=== PATIENT | female | born 1990 | race Caucasian/White ===

== ENCOUNTER 2018-08-20 00:28 | Inpatient (IN) | payer BC ==
[2018-08-20] MEDS ORDERED: Ondansetron 4 MG/2 ML SDV IV PRN (01:32)
[2018-08-20] MEDS ORDERED: Water For Irrigation,Sterile 1,000 ML Container IRR PRN (01:32)
[2018-08-20] MEDS ORDERED: Tranexamic Acid 1,000 MG in Sodium Chloride 0.9% 100 ML IV PRN (01:32)
[2018-08-20] MEDS ORDERED: Sodium Chloride 0.9% 10 ML SDV IV PRN (01:32)
[2018-08-20] MEDS ORDERED: Methylergonovine 0.2 MG/1 ML Amp IM PRN (01:32)
[2018-08-20] MEDS ORDERED: Misoprostol 25 MCG (1/4 of 100 MCG) Tab PO PRN (01:32)
[2018-08-20] MEDS ORDERED: Sodium Chloride 0.9% 2.5 ML Syringe FLUSH PRN (01:32)
[2018-08-20] MEDS ORDERED: Misoprostol 200 MCG Tab PO PRN (01:32)
[2018-08-20] MEDS ORDERED: Sodium Chloride 0.9% 10 ML Syringe FLUSH PRN (01:32)
[2018-08-20] MEDS ORDERED: Terbutaline 1 MG/ML SDV SUBCUT PRN (01:32)
[2018-08-20] MEDS ORDERED: Nalbuphine 10 MG/1 ML Vial IVPUSH PRN (01:32)
[2018-08-20] MEDS ORDERED: Misoprostol 25 MCG (1/4 of 100 MCG) Tab VAG PRN (01:32)
[2018-08-20] MEDS ORDERED: Carboprost Tromethamine 250 MCG/1 ML Amp IM PRN (01:32)
[2018-08-20] MEDS ORDERED: Lidocaine 1% 50 ML MDV INJECT PRN (01:32)
[2018-08-20] MEDS ORDERED: Oxytocin/0.9 % Sodium Chloride 30 UNIT/500 ML BAG IV SCH (01:45)
[2018-08-20] MEDS: Lactated Ringers 1,000 ML IV SCH ×3 (06:10→18:16)
--- NOTE | 2018-08-20 08:27 | PCM.PREANE ---
Preanesthetic Assessment - Anesthesia/Transfusion/Family Hx Anesthesia History: Prior Anesthesia Without Reaction Transfusion History: No Prior Transfusion(s) - Review of Systems General: No Symptoms Pulmonary: No Symptoms Cardiovascular: No Symptoms Gastrointestinal: No Symptoms Neurological: No Symptoms Other: Reports: None - Physical Assessment Height: 5 ft 7 in Weight: 102.058 kg ASA Class: 2 Mental Status: Alert & Oriented x3 Airway Class: Mallampati = 2 Dentition: Reports: Normal Dentition Thyro-Mental Finger Breadths: 3 Mouth Opening Finger Breadths: 3 ROM/Head Extension: Full Lungs: Clear to Auscultation, Normal Respiratory Effort Cardiovascular: Regular Rate, Regular Rhythm - Lab Values: Laboratory Last Values WBC 13.55 K/uL (4.0-11.0) H 08/20/18 01:45 RBC 4.27 M/uL (4.30-5.90) L 08/20/18 01:45 Hgb 12.6 g/dL (12.0-16.0) 08/20/18 01:45 Hct 37.6 % (36.0-46.0) 08/20/18 01:45 MCV 88.1 fL (80.0-98.0) 08/20/18 01:45 MCH 29.5 pg (27.0-32.0) 08/20/18 01:45 MCHC 33.5 g/dL (31.0-37.0) 08/20/18 01:45 RDW Std Deviation 44.2 fl (28.0-62.0) 08/20/18 01:45 RDW Coeff of Gigi 14 % (11.0-15.0) 08/20/18 01:45 Plt Count 303 K/uL (150-400) 08/20/18 01:45 MPV 9.90 fL (7.40-12.00) 08/20/18 01:45 Nucleated RBC % 0.0 /100WBC 08/20/18 01:45 Nucleated RBCs # 0 K/uL 08/20/18 01:45 Blood Type O POSITIVE 08/20/18 01:45 Antibody Screen NEGATIVE 08/20/18 01:45 - Allergies Allergies/Adverse Reactions: Allergies Allergy/AdvReac Type Severity Reaction Status Date / Time No Known Allergies Allergy Verified 08/20/18 01:31 - Anesthesia Plan Free Text/Narrative:: Continuous Labor Epidural - Acknowledgements Anesthesia Type Planned: Epidural Pt an Appropriate Candidate for the Planned Anesthesia: Yes Alternatives and Risks of Anesthesia Discussed w Pt/Guardian: Yes Pt/Guardian Understands and Agrees with Anesthesia Plan: Yes PreAnesthesia Questionnaire HEENT History: Reports: Impaired Vision Cardiovascular History: Reports: None Respiratory History: Reports: None Gastrointestinal History: Reports: None Genitourinary History: Reports: None IRON HANDLER History: Reports: : 1 Para: 0 LMP (Approximate): Musculoskeletal History: Reports: None Neurological History: Reports: None Psychiatric History: Reports: None Endocrine/Metabolic History: Reports: None Hematologic History: Reports: None Immunologic History: Reports: None Oncologic (Cancer) History: Reports: None Dermatologic History: Reports: None - Infectious Disease History Infectious Disease History: Reports: None - Past Surgical History HEENT Surgical History: Reports: Oral Surgery, Other (See Below) Other HEENT Surgeries/Procedures: cyst removed from head - SUBSTANCE USE Smoking Status *Q: Never Smoker Recreational Drug Use History: No - HOME MEDS Home Medications: Home Meds PNV95/Ferrous Fumarate/FA [ Tablet] 1 tab PO DAILY 08/20/18 [History] - CURRENT (IN HOUSE) MEDS Current Meds: Current Medications Carboprost Tromethamine (Hemabate Ds) 250 mcg IM ASDIRECTED PRN PRN Reason: Post Hemorrhage Lactated Ringer's (Ringers, Lactated) 1,000 mls @ 150 mls/hr IV ASDIRECTED MECHE Last Admin: 08/20/18 08:20 Dose: 150 mls/hr Oxytocin/Sodium Chloride (Oxytocin 30 Unit/500 Ml-Ns) 30 unit in 500 mls @ 999 mls/hr IV TITRATE MECHE Oxytocin/Sodium Chloride (Oxytocin 30 Unit/500 Ml-Ns) 30 unit in 500 mls @ 2 mls/hr IV TITRATE M[facility]; Protocol Last Admin: 08/20/18 06:49 Dose: 2 munits/min, 2 mls/hr Tranexamic Acid 1,000 mg/ (Sodium Chloride) 110 mls @ 660 mls/hr IV ONETIME PRN PRN Reason: Bleeding Lidocaine HCl (Xylocaine 1%) 50 ml INJECT ONETIME PRN PRN Reason: Laceration repair Methylergonovine Maleate (Methergine) 0.2 mg IM ASDIRECTED PRN PRN Reason: Post Hemorrhage Misoprostol (Cytotec) 200 mcg PO ONETIME PRN PRN Reason: Post Hemorrhage Misoprostol (Cytotec) 25 mcg VAG Q4H PRN PRN Reason: Cervical Ripening Last Admin: 08/20/18 01:56 Dose: 25 mcg Misoprostol (Cytotec) 25 mcg PO Q4H PRN PRN Reason: Cervical Ripening Last Admin: 08/20/18 01:55 Dose: 25 mcg Nalbuphine HCl (Nubain) 10 mg IVPUSH Q1H PRN PRN Reason: Pain (severe 7-10) Ondansetron HCl (Zofran) 4 mg IV Q6H PRN PRN Reason: Nausea/Vomiting Sodium Chloride (Saline Flush) 10 ml FLUSH ASDIRECTED PRN PRN Reason: Keep Vein Open Sodium Chloride (Saline Flush) 2.5 ml FLUSH ASDIRECTED PRN PRN Reason: Keep Vein Open Sodium Chloride (Normal Saline) 10 ml IV ASDIRECTED PRN PRN Reason: IV Use Sterile Water (Sterile Water For Irrigation) 1,000 ml IRR ASDIRECTED PRN PRN Reason: delivery Terbutaline Sulfate (Brethine) 0.25 mg SUBCUT ASDIRECTED PRN PRN Reason: Tacysystole Discontinued Medications Fentanyl/Bupivacaine HCl (Dobowsin-Syrco-Ea 2 Mcg/Ml-0.125%) Confirm Administered Dose 100 mls @ as directed .ROUTE .[facility] ONE Stop: 08/20/18 07:48
[2018-08-20] MEDS ORDERED: Bupivacaine 0.25% 10 ML SDV ONE ×2 (12:18→14:55)
--- NOTE | 2018-08-20 13:25 | PCM.SN ---
- Free Text/Narrative Note: [id number] Anesthesia Note: Pt has advanced from 4 cm to 6-7cm in 2 hrs and is having breakthrough pain in her L groin with no relief from PRODUCTION LINE Boluses. Provider bolus of 9 mL given and HOB positioned in high fowlers. [id number] Pt states that pain in groin has resolved, but severe pressure/pain in her vaginal area is causing her to breathe thru contractions. She has now progressed to 8 cm. A total of 10 mL per pump bolused and 5mL of 0.25% Bupiv given. After 15 min, pt is much more relaxed and states she is not having any pain with contractions.
[2018-08-20] MEDS ORDERED: fentaNYL 100 MCG/2 ML SDV ONE (15:16)
--- NOTE | 2018-08-20 15:47 | PCM.SN ---
- Free Text/Narrative Note: Anesthesia Note: 1450 - 1550 Pt breathing heavy thru contractions. Dilated to 9 cm now and at 0 station still with complaints of pain to her back and vaginal area. Bolused with 10 mL 0.25% Bupiv. Checked back 10 min later and pt still breathing just as heavy and states pain more on L side and just wants to push. Asked nurse to check pt again. Pt is now fully dilated. Assisted nurse with turning pt to the L and bolused with 100 mcg of Fentanyl. Pt tolerates well and VSS. Appears to be getting relief with in just a few minutes. Pt now pushing and doctor called for delivery. Pt much calmer. Additional 5mL bolus given via pump. VSS.
[2018-08-20] MEDS: Oxytocin/0.9 % Sodium Chloride 30 UNIT/500 ML BAG IV SCH ×2 (16:15→17:10)
[2018-08-20] MEDS ORDERED: Ampicillin/Sulbactam Na 3 GM in Sodium Chloride 0.9% 100 ML IV SCH (16:30)
[2018-08-20] MEDS ORDERED: Butorphanol 1 MG/ML SDV ONE (16:30)
[2018-08-20] MEDS ORDERED: oxyCODONE 5 MG Tab PO PRN (17:20)
[2018-08-20] MEDS ORDERED: Lanolin 100% Cream 7 GM Tube TOP PRN (17:20)
[2018-08-20] MEDS ORDERED: Witch Hazel Medicated Pads 40/Jar TOP PRN (17:20)
[2018-08-20] MEDS ORDERED: Acetaminophen 500 MG Tab PO PRN ×2 (17:20)
[2018-08-20] MEDS ORDERED: Benzocaine/Menthol 20%-0.5% Spray 78 GM Cannister TOP PRN (17:20)
[2018-08-20] MEDS ORDERED: Docusate Sodium 100 MG Cap PO PRN (17:20)
[2018-08-20] MEDS ORDERED: Ibuprofen 400 MG Tab PO PRN (17:20)
[2018-08-20] MEDS ORDERED: Bisacodyl 10 MG Supp RECTAL PRN (17:20)
--- NOTE | 2018-08-20 17:26 | PCM.DEL ---
L & D Note - General Info Date of Service: 08/20/18 Mother's Due Date: 08/15/18 - Delivery Note Labor: Spontaneous Delivery Outcome: Livebirth Infant Delivery Method: Spontaneous Vaginal Delivery-Single Presentation: Left Occiput Anterior (VICKI) Nuchal Cord: Reduced Anesthesia Type: Epidural Laceration: 2nd Degree Suture type: Other (monocryl) Suture size: 2-0 Placenta: Spontaneous Cord: 3 Vessels Estimated Blood Loss: 1,000 Resuscitation Needed: No [place]: Suctioned, [place] Used Score 1 min: 8 Score 5 min: 9 Delivery Comments (Free Text/Narrative):: Live female delivered 1614 , 8/9 , weight 3520g , EBL: 1000 , due to bleeding , patient given 1g of transexamic acid addition bag of 30 Unit in 500, Methergine 0.2g Bmanual massage done - General Info Date of Service: 08/20/18 - Patient Data Weight - Most Recent: 102.058 kg Lab Results Last 24 Hours: Laboratory Results - last 24 hr 08/20/18 08/20/18 Range/Units 01:45 01:45 WBC 13.55 H (4.0-11.0) K/uL RBC 4.27 L (4.30-5.90) M/uL Hgb 12.6 (12.0-16.0) g/dL Hct 37.6 (36.0-46.0) % MCV 88.1 (80.0-98.0) fL MCH 29.5 (27.0-32.0) pg MCHC 33.5 (31.0-37.0) g/dL RDW Std Deviation 44.2 (28.0-62.0) fl RDW Coeff of Gigi 14 (11.0-15.0) % Plt Count 303 (150-400) K/uL MPV 9.90 (7.40-12.00) fL Nucleated RBC % 0.0 /100WBC Nucleated RBCs # 0 K/uL Blood Type O POSITIVE Antibody Screen NEGATIVE Med Orders - Current: Current Medications Carboprost Tromethamine (Hemabate Ds) 250 mcg IM ASDIRECTED PRN PRN Reason: Post Hemorrhage Lactated Ringer's (Ringers, Lactated) 1,000 mls @ 150 mls/hr IV ASDIRECTED MECHE Last Admin: 08/20/18 08:20 Dose: 150 mls/hr Oxytocin/Sodium Chloride (Oxytocin 30 Unit/500 Ml-Ns) 30 unit in 500 mls @ 999 mls/hr IV TITRATE [facility] Last Admin: 08/20/18 16:15 Dose: 999 mls/hr Oxytocin/Sodium Chloride (Oxytocin 30 Unit/500 Ml-Ns) 30 unit in 500 mls @ 2 mls/hr IV TITRATE [facility]; Protocol Last Titration: 08/20/18 16:15 Dose: 0 munits/min, 0 mls/hr Tranexamic Acid 1,000 mg/ (Sodium Chloride) 110 mls @ 660 mls/hr IV ONETIME PRN PRN Reason: Bleeding Ampicillin Sodium/Sulbactam (Sodium 3 gm/ Sodium Chloride) 100 mls @ 200 mls/ hr IV Q6H [facility] Stop: 08/21/18 17:14 Lidocaine HCl (Xylocaine 1%) 50 ml INJECT ONETIME PRN PRN Reason: Laceration repair Last Admin: 08/20/18 16:36 Dose: 50 ml Methylergonovine Maleate (Methergine) 0.2 mg IM ASDIRECTED PRN PRN Reason: Post Hemorrhage Last Admin: 08/20/18 16:33 Dose: 0.2 mg Misoprostol (Cytotec) 200 mcg PO ONETIME PRN PRN Reason: Post Hemorrhage Misoprostol (Cytotec) 25 mcg VAG Q4H PRN PRN Reason: Cervical Ripening Last Admin: 08/20/18 01:56 Dose: 25 mcg Misoprostol (Cytotec) 25 mcg PO Q4H PRN PRN Reason: Cervical Ripening Last Admin: 08/20/18 01:55 Dose: 25 mcg Nalbuphine HCl (Nubain) 10 mg IVPUSH Q1H PRN PRN Reason: Pain (severe 7-10) Ondansetron HCl (Zofran) 4 mg IV Q6H PRN PRN Reason: Nausea/Vomiting Sodium Chloride (Saline Flush) 10 ml FLUSH ASDIRECTED PRN PRN Reason: Keep Vein Open Sodium Chloride (Saline Flush) 2.5 ml FLUSH ASDIRECTED PRN PRN Reason: Keep Vein Open Sodium Chloride (Normal Saline) 10 ml IV ASDIRECTED PRN PRN Reason: IV Use Sterile Water (Sterile Water For Irrigation) 1,000 ml IRR ASDIRECTED PRN PRN Reason: delivery Last Admin: 08/20/18 16:36 Dose: 1,000 ml Terbutaline Sulfate (Brethine) 0.25 mg SUBCUT ASDIRECTED PRN PRN Reason: Tacysystole Discontinued Medications Bupivacaine HCl (Sensorcaine-Mpf 0.25%) Confirm Administered Dose 10 ml .ROUTE .[facility]-MED ONE Stop: 08/20/18 12:19 Bupivacaine HCl (Sensorcaine-Mpf 0.25%) Confirm Administered Dose 10 ml .ROUTE .ST[facility]-MED ONE Stop: 08/20/18 14:56 Butorphanol Tartrate (Stadol) Confirm Administered Dose 1 mg .ROUTE .STK-MED ONE Stop: 08/20/18 16:31 Last Admin: 08/20/18 16:34 Dose: 1 mg Fentanyl (Sublimaze) Confirm Administered Dose 100 mcg .ROUTE .STK-MED ONE Stop: 08/20/18 15:17 Fentanyl/Bupivacaine HCl ([place]-Pnwna-Gq 2 Mcg/Ml-0.125%) Confirm Administered Dose 100 mls @ as directed .ROUTE .STK-MED ONE Stop: 08/20/18 07:48 Fentanyl/Bupivacaine HCl (Nwnjthlw-Qmfhn-Dl 2 Mcg/Ml-0.125%) Confirm Administered Dose 100 mls @ as directed .ROUTE .STK-MED ONE Stop: 08/20/18 12:18 Ampicillin Sodium/Sulbactam (Sodium 3 gm/ Sodium Chloride) 100 mls @ 200 mls/ hr IV Q6H [facility] Stop: 08/21/18 10:59 Tranexamic Acid (Cyklokapron) Confirm Administered Dose 1,000 mg .ROUTE .STK- MED ONE Stop: 08/20/18 16:54 Last Admin: 08/20/18 16:59 Dose: 1,000 mg - Problem List & Annotations (1) Vaginal delivery SNOMED Code(s): 808111089 Code(s): O80 - ENCOUNTER FOR FULL-TERM UNCOMPLICATED DELIVERY Status: Acute Current Visit: Yes - Problem List Review Problem List Initiated/Reviewed/Updated: Yes - My Orders Last 24 Hours: My Active Orders 08/20/18 16:45 Ampicillin/Sulbactam Na [Unasyn] 3 gm Sodium Chloride 0.9% [Normal Saline] 100 ml IV Q6H 08/20/18 17:20 May Shower [RC] ASDIRECTED Up ad Kezia [RC] ASDIRECTED Vital Signs [RC] PER UNIT ROUTINE BLOOD GAS ARTERIAL UMBILICAL [BG] Urgent BLOOD GAS VENOUS UMBILICAL [BG] Urgent Acetaminophen [Tylenol Extra Strength] 1,000 mg PO Q4H PRN Acetaminophen [Tylenol Extra Strength] 500 mg PO Q4H PRN Benzocaine/Menthol [Dermoplast Pain Relief 20%-0.5% [place]] 78 gm TOP ASDIRECTED PRN Bisacodyl [Dulcolax] 10 mg RECTAL ONETIME PRN Docusate Sodium [Colace] 100 mg PO BID PRN Ibuprofen [Motrin] 400 mg PO Q4H PRN Ibuprofen [Motrin] 800 mg PO Q6H PRN Lanolin [Lansinoh HPA] See Dose Instructions TOP ASDIRECTED PRN Witch Albina [Tucks] 1 pad TOP ASDIRECTED PRN oxyCODONE 5 mg PO Q2H PRN Assess Lochia [WOMSER] Per Unit Routine Assess Uterine Involution [WOMSER] Per Unit Routine Peripheral IV Discontinue [OM.PC] Routine 08/21/18 05:11 HEMOGLOBIN/HEMATOCRIT,HH [HEME] Timed 08/21/18 17:20 Measles, Mumps & Rubella [M-M-R II Vaccine] 0.5 ml SUBCUT .ONCE ONE
[2018-08-20] MEDS: Ampicillin/Sulbactam Na 3 GM in Sodium Chloride 0.9% 100 ML IV SCH (18:15)
[2018-08-21] MEDS: Ampicillin/Sulbactam Na 3 GM in Sodium Chloride 0.9% 100 ML IV SCH ×4 (00:20→17:55)
[2018-08-21] MEDS: Ibuprofen 800 MG Tab PO PRN ×3 (05:51→20:11)
--- NOTE | 2018-08-21 07:57 | PCM48HPAN ---
Post Anesthesia Note - EVALUATION WITHIN 48HRS OF ANESTHETIC Vital Signs in Normal Range: Yes Patient Participated in Evaluation: Yes Respiratory Function Stable: Yes Airway Patent: Yes Cardiovascular Function Stable: Yes Hydration Status Stable: Yes Pain Control Satisfactory: Yes Nausea and Vomiting Control Satisfactory: Yes Mental Status Recovered: Yes Pulse Rate: 78 SaO2: 94 Resp Rate: 14 Temperature: 36.5 C Blood Pressure: 111/62 - COMMENTS/OBSERVATIONS Free Text/Narrative:: Patient doing well, sitting in bed nursing baby. States some numbness in right groin area and some generalized discomfort. No anesthesia complications or concerns.
--- NOTE | 2018-08-21 08:04 | PCM.PNPP ---
- General Info Date of Service: 08/21/18 Subjective Update: 27 yo P1 s/p PPD1 , delivery complicated with PPH , normal lochia , ambulating , tolerating regular diet Functional Status: Reports: Pain Controlled, Tolerating Diet, Ambulating, Urinating - Review of Systems General: Reports: No Symptoms HEENT: Reports: No Symptoms Pulmonary: Reports: No Symptoms Cardiovascular: Reports: No Symptoms Gastrointestinal: Reports: No Symptoms Genitourinary: Reports: No Symptoms Musculoskeletal: Reports: No Symptoms Skin: Reports: No Symptoms Neurological: Reports: No Symptoms Psychiatric: Reports: No Symptoms - General Info Date of Service: 08/21/18 - Patient Data Vital Signs - Most Recent: Last Vital Signs Temp 36.5 C 08/21/18 07:57 Pulse 78 08/21/18 07:57 Resp 14 08/21/18 07:57 BP 111/62 08/21/18 07:57 Pulse Ox 94 L 08/21/18 07:57 Weight - Most Recent: 102.058 kg Lab Results - Last 24 Hours: Laboratory Results - last 24 hr 08/20/18 08/21/18 Range/Units 16:16 05:45 Hgb 11.0 L (12.0-16.0) g/dL Hct 33.3 L (36.0-46.0) % Cord ABG pH 7.210 (7.18-7.38) Cord ABG Base Excess -11 L (-10--2) Cord VBG pH 7.260 (7.25-7.45) Cord VBG Base Excess -12 L (-10--2) Med Orders - Current: Current Medications Acetaminophen (Tylenol Extra Strength) 500 mg PO Q4H PRN PRN Reason: Pain Acetaminophen (Tylenol Extra Strength) 1,000 mg PO Q4H PRN PRN Reason: Pain Benzocaine/Menthol (Dermoplast Pain Relief 20%-0.5% [place]) 78 gm TOP ASDIRECTED PRN PRN Reason: Perineal Comfort Measure Bisacodyl (Dulcolax) 10 mg RECTAL ONETIME PRN PRN Reason: Constipation Docusate Sodium (Colace) 100 mg PO BID PRN PRN Reason: Constipation Emollient Ointment (Lansinoh Hpa) 0 gm TOP ASDIRECTED PRN PRN Reason: Sore Nipples Lactated Ringer's (Ringers, Lactated) 1,000 mls @ 150 mls/hr IV ASDIRECTED MECHE Last Admin: 08/20/18 18:16 Dose: 75 mls/hr Oxytocin/Sodium Chloride (Oxytocin 30 Unit/500 Ml-Ns) 30 unit in 500 mls @ 2 mls/hr IV TITRATE M[facility]; Protocol Last Titration: 08/20/18 16:15 Dose: 0 munits/min, 0 mls/hr Ampicillin Sodium/Sulbactam (Sodium 3 gm/ Sodium Chloride) 100 mls @ 200 mls/ hr IV Q6H [facility] Stop: 08/21/18 17:14 Last Admin: 08/21/18 05:52 Dose: 200 mls/hr Ibuprofen (Motrin) 400 mg PO Q4H PRN PRN Reason: Pain Ibuprofen (Motrin) 800 mg PO Q6H PRN PRN Reason: Pain Last Admin: 08/21/18 05:51 Dose: 800 mg Measles/Mumps/Rubella Vaccine Live (M-M-R Ii Vaccine) 0.5 ml SUBCUT .ONCE ONE Stop: 08/21/18 17:21 Misoprostol (Cytotec) 25 mcg VAG Q4H PRN PRN Reason: Cervical Ripening Last Admin: 08/20/18 01:56 Dose: 25 mcg Misoprostol (Cytotec) 25 mcg PO Q4H PRN PRN Reason: Cervical Ripening Last Admin: 08/20/18 01:55 Dose: 25 mcg Ondansetron HCl (Zofran) 4 mg IV Q6H PRN PRN Reason: Nausea/Vomiting Oxycodone HCl (Oxycodone) 5 mg PO Q2H PRN PRN Reason: Pain Sodium Chloride (Saline Flush) 10 ml FLUSH ASDIRECTED PRN PRN Reason: Keep Vein Open Sodium Chloride (Saline Flush) 2.5 ml FLUSH ASDIRECTED PRN PRN Reason: Keep Vein Open Sodium Chloride (Normal Saline) 10 ml IV ASDIRECTED PRN PRN Reason: IV Use Terbutaline Sulfate (Brethine) 0.25 mg SUBCUT ASDIRECTED PRN PRN Reason: Tacysystole Witch [place] (Tucks) 1 pad TOP ASDIRECTED PRN PRN Reason: comfort care Discontinued Medications Bupivacaine HCl (Sensorcaine-Mpf 0.25%) Confirm Administered Dose 10 ml .ROUTE .[facility]-MED ONE Stop: 08/20/18 12:19 Last Admin: 08/20/18 20:30 Dose: Not Given Bupivacaine HCl (Sensorcaine-Mpf 0.25%) Confirm Administered Dose 10 ml .ROUTE .[facility] ONE Stop: 08/20/18 14:56 Last Admin: 08/20/18 20:30 Dose: Not Given Butorphanol Tartrate (Stadol) Confirm Administered Dose 1 mg .ROUTE .[facility] ONE Stop: 08/20/18 16:31 Last Admin: 08/20/18 16:34 Dose: 1 mg Carboprost Tromethamine (Hemabate Ds) 250 mcg IM ASDIRECTED PRN PRN Reason: Post Hemorrhage Fentanyl (Sublimaze) Confirm Administered Dose 100 mcg .ROUTE .[facility]-MED ONE Stop: 08/20/18 15:17 Last Admin: 08/20/18 20:29 Dose: Not Given Oxytocin/Sodium Chloride (Oxytocin 30 Unit/500 Ml-Ns) 30 unit in 500 mls @ 999 mls/hr IV TITRATE [facility] Last Admin: 08/20/18 17:10 Dose: 500 mls/hr Tranexamic Acid 1,000 mg/ (Sodium Chloride) 110 mls @ 660 mls/hr IV ONETIME PRN PRN Reason: Bleeding Fentanyl/Bupivacaine HCl (Ovwrdrml-Cgsqs-Ej 2 Mcg/Ml-0.125%) Confirm Administered Dose 100 mls @ as directed .ROUTE .[facility] Stop: 08/20/18 07:48 Last Admin: 08/20/18 20:30 Dose: Not Given Fentanyl/Bupivacaine HCl (Dhhcgcxx-Emtwu-Hm 2 Mcg/Ml-0.125%) Confirm Administered Dose 100 mls @ as directed .ROUTE [facility]-MED ONE Stop: 08/20/18 12:18 Last Admin: 08/20/18 20:30 Dose: Not Given Ampicillin Sodium/Sulbactam (Sodium 3 gm/ Sodium Chloride) 100 mls @ 200 mls/ hr IV Q6H [facility] Stop: 08/21/18 10:59 Last Admin: 08/20/18 20:52 Dose: Not Given Lidocaine HCl (Xylocaine 1%) 50 ml INJECT ONETIME PRN PRN Reason: Laceration repair Last Admin: 08/20/18 16:36 Dose: 50 ml Methylergonovine Maleate (Methergine) 0.2 mg IM ASDIRECTED PRN PRN Reason: Post Hemorrhage Last Admin: 08/20/18 16:33 Dose: 0.2 mg Misoprostol (Cytotec) 200 mcg PO ONETIME PRN PRN Reason: Post Hemorrhage Nalbuphine HCl (Nubain) 10 mg IVPUSH Q1H PRN PRN Reason: Pain (severe 7-10) Sterile Water (Sterile Water For Irrigation) 1,000 ml IRR ASDIRECTED PRN PRN Reason: delivery Last Admin: 08/20/18 16:36 Dose: 1,000 ml Tranexamic Acid (Cyklokapron) Confirm Administered Dose 1,000 mg .ROUTE .STK- MED ONE Stop: 08/20/18 16:54 Last Admin: 08/20/18 16:59 Dose: 1,000 mg - Interaction Support Person: - Recovery Exam Fundal Tone: Firm Fundal Level: 1 Fingerbreadths Below Umbilicus Fundal Placement: Midline Lochia Amount: Scant Lochia Color: Rubra/Red Perineum Description: Other (see below) Other Perinuem Description: 2nd degree laceration Episiotomy/Laceration: Approximated Bladder Status: Voiding - Exam General: Alert HEENT: Pupils Equal Neck: Supple Lungs: Clear to Auscultation, Normal Respiratory Effort Cardiovascular: Regular Rate, Regular Rhythm GI/Abdominal Exam: Normal Bowel Sounds Extremities: Normal Inspection - Problem List & Annotations (1) Vaginal delivery SNOMED Code(s): 994933938 Code(s): O80 - ENCOUNTER FOR FULL-TERM UNCOMPLICATED DELIVERY Status: Acute Current Visit: Yes - Problem List Review Problem List Initiated/Reviewed/Updated: Yes - My Orders Last 24 Hours: My Active Orders 08/20/18 16:45 Ampicillin/Sulbactam Na [Unasyn] 3 gm Sodium Chloride 0.9% [Normal Saline] 100 ml IV Q6H 08/20/18 17:20 May Shower [RC] ASDIRECTED Up ad Kezia [RC] ASDIRECTED Vital Signs [RC] PER UNIT ROUTINE Acetaminophen [Tylenol Extra Strength] 1,000 mg PO Q4H PRN Acetaminophen [Tylenol Extra Strength] 500 mg PO Q4H PRN Benzocaine/Menthol [Dermoplast Pain Relief 20%-0.5% [place]] 78 gm TOP ASDIRECTED PRN Bisacodyl [Dulcolax] 10 mg RECTAL ONETIME PRN Docusate Sodium [Colace] 100 mg PO BID PRN Ibuprofen [Motrin] 400 mg PO Q4H PRN Ibuprofen [Motrin] 800 mg PO Q6H PRN Lanolin [Lansinoh HPA] See Dose Instructions TOP ASDIRECTED PRN Witch [place] [Tucks] 1 pad TOP ASDIRECTED PRN oxyCODONE 5 mg PO Q2H PRN Assess Lochia [WOMSER] Per Unit Routine Assess Uterine Involution [WOMSER] Per Unit Routine Peripheral IV Discontinue [OM.PC] Routine 08/20/18 19:08 Admission Status [Patient Status] [ADT] Routine 08/20/18 20:35 Code Status [Resuscitation Status] Routine 08/21/18 17:20 Measles, Mumps & Rubella [M-M-R II Vaccine] 0.5 ml SUBCUT .ONCE ONE - Assessment Assessment:: 27 yo P1 s/p PPD 1 , normal lochia , had PPH , manual removal of placenta - Plan Plan:: Complete 24hrs of antibiotics Discharge home today
--- NOTE | 2018-08-21 08:07 | PCM.DCSUM1 ---
Discharge Summary - Hospital Course HPI Initial Comments: 27 yo s/p PPD1 , Normal lochia , s/p manual removal of placenta Diagnosis: Stroke: No - Discharge Data Discharge Date: 08/21/18 Discharge Disposition: Home, Self-Care 01 Condition: Good - Discharge Diagnosis/Problem(s) (1) Vaginal delivery SNOMED Code(s): 499810395 ICD Code: O80 - ENCOUNTER FOR FULL-TERM UNCOMPLICATED DELIVERY Status: Acute Current Visit: Yes - Patient Instructions Diet: Usual Diet as Tolerated Activity: As Tolerated Driving: Do Not Drive Showering/Bathing: May Shower Notify Provider of: Fever, Increased Pain, Swelling and Redness, Drainage - Discharge Plan *PRESCRIPTION DRUG MONITORING PROGRAM REVIEWED*: Not Applicable *COPY OF PRESCRIPTION DRUG MONITORING REPORT IN PATIENT DOROTHY: Not Applicable Home Medications: Home Meds PNV95/Ferrous Fumarate/FA [ Tablet] 1 tab PO DAILY 08/20/18 [History] - Discharge Summary/Plan Comment DC Time >30 min.: No - General Info Date of Service: 08/21/18 Subjective Update: 27 yo P1 s/p PPD1 , delivery complicated with PPH , normal lochia , ambulating , tolerating regular diet - Patient Data Vitals - Most Recent: Last Vital Signs Temp 36.5 C 08/21/18 07:57 Pulse 78 08/21/18 07:57 Resp 14 08/21/18 07:57 BP 111/62 08/21/18 07:57 Pulse Ox 94 L 08/21/18 07:57 Weight - Most Recent: 102.058 kg Lab Results - Last 24 hrs: Laboratory Results - last 24 hr 08/20/18 08/21/18 Range/Units 16:16 05:45 Hgb 11.0 L (12.0-16.0) g/dL Hct 33.3 L (36.0-46.0) % Cord ABG pH 7.210 (7.18-7.38) Cord ABG Base Excess -11 L (-10--2) Cord VBG pH 7.260 (7.25-7.45) Cord VBG Base Excess -12 L (-10--2) Med Orders - Current: Current Medications Acetaminophen (Tylenol Extra Strength) 500 mg PO Q4H PRN PRN Reason: Pain Acetaminophen (Tylenol Extra Strength) 1,000 mg PO Q4H PRN PRN Reason: Pain Benzocaine/Menthol (Dermoplast Pain Relief 20%-0.5% [place]) 78 gm TOP ASDIRECTED PRN PRN Reason: Perineal Comfort Measure Bisacodyl (Dulcolax) 10 mg RECTAL ONETIME PRN PRN Reason: Constipation Docusate Sodium (Colace) 100 mg PO BID PRN PRN Reason: Constipation Emollient Ointment (Lansinoh Hpa) 0 gm TOP ASDIRECTED PRN PRN Reason: Sore Nipples Lactated Ringer's (Ringers, Lactated) 1,000 mls @ 150 mls/hr IV ASDIRECTED [facility] Last Admin: 08/20/18 18:16 Dose: 75 mls/hr Oxytocin/Sodium Chloride (Oxytocin 30 Unit/500 Ml-Ns) 30 unit in 500 mls @ 2 mls/hr IV TITRATE [facility]; Protocol Last Titration: 08/20/18 16:15 Dose: 0 munits/min, 0 mls/hr Ampicillin Sodium/Sulbactam (Sodium 3 gm/ Sodium Chloride) 100 mls @ 200 mls/ hr IV Q6H [facility] Stop: 08/21/18 17:14 Last Admin: 08/21/18 05:52 Dose: 200 mls/hr Ibuprofen (Motrin) 400 mg PO Q4H PRN PRN Reason: Pain Ibuprofen (Motrin) 800 mg PO Q6H PRN PRN Reason: Pain Last Admin: 08/21/18 05:51 Dose: 800 mg Measles/Mumps/Rubella Vaccine Live (M-M-R Ii Vaccine) 0.5 ml SUBCUT .ONCE ONE Stop: 08/21/18 17:21 Misoprostol (Cytotec) 25 mcg VAG Q4H PRN PRN Reason: Cervical Ripening Last Admin: 08/20/18 01:56 Dose: 25 mcg Misoprostol (Cytotec) 25 mcg PO Q4H PRN PRN Reason: Cervical Ripening Last Admin: 08/20/18 01:55 Dose: 25 mcg Ondansetron HCl (Zofran) 4 mg IV Q6H PRN PRN Reason: Nausea/Vomiting Oxycodone HCl (Oxycodone) 5 mg PO Q2H PRN PRN Reason: Pain Sodium Chloride (Saline Flush) 10 ml FLUSH ASDIRECTED PRN PRN Reason: Keep Vein Open Sodium Chloride (Saline Flush) 2.5 ml FLUSH ASDIRECTED PRN PRN Reason: Keep Vein Open Sodium Chloride (Normal Saline) 10 ml IV ASDIRECTED PRN PRN Reason: IV Use Terbutaline Sulfate (Brethine) 0.25 mg SUBCUT ASDIRECTED PRN PRN Reason: Tacysystole [place] (Tucks) 1 pad TOP ASDIRECTED PRN PRN Reason: comfort care Discontinued Medications Bupivacaine HCl (Sensorcaine-Mpf 0.25%) Confirm Administered Dose 10 ml .ROUTE .STK-MED ONE Stop: 08/20/18 12:19 Last Admin: 08/20/18 20:30 Dose: Not Given Bupivacaine HCl (Sensorcaine-Mpf 0.25%) Confirm Administered Dose 10 ml .ROUTE .STK-MED ONE Stop: 08/20/18 14:56 Last Admin: 08/20/18 20:30 Dose: Not Given Butorphanol Tartrate (Stadol) Confirm Administered Dose 1 mg .ROUTE .STK-MED ONE Stop: 08/20/18 16:31 Last Admin: 08/20/18 16:34 Dose: 1 mg Carboprost Tromethamine (Hemabate Ds) 250 mcg IM ASDIRECTED PRN PRN Reason: Post Hemorrhage Fentanyl (Sublimaze) Confirm Administered Dose 100 mcg .ROUTE .STK-MED ONE Stop: 08/20/18 15:17 Last Admin: 08/20/18 20:29 Dose: Not Given Oxytocin/Sodium Chloride (Oxytocin 30 Unit/500 Ml-Ns) 30 unit in 500 mls @ 999 mls/hr IV TITRATE [facility] Last Admin: 08/20/18 17:10 Dose: 500 mls/hr Tranexamic Acid 1,000 mg/ (Sodium Chloride) 110 mls @ 660 mls/hr IV ONETIME PRN PRN Reason: Bleeding Fentanyl/Bupivacaine HCl (Ppskhpbq-Xysih-Xt 2 Mcg/Ml-0.125%) Confirm Administered Dose 100 mls @ as directed .ROUTE .STK-MED ONE Stop: 08/20/18 07:48 Last Admin: 08/20/18 20:30 Dose: Not Given Fentanyl/Bupivacaine HCl (Efhvconr-Uyjrj-Dp 2 Mcg/Ml-0.125%) Confirm Administered Dose 100 mls @ as directed .ROUTE .STK-MED ONE Stop: 08/20/18 12:18 Last Admin: 08/20/18 20:30 Dose: Not Given Ampicillin Sodium/Sulbactam (Sodium 3 gm/ Sodium Chloride) 100 mls @ 200 mls/ hr IV Q6H [facility] Stop: 08/21/18 10:59 Last Admin: 08/20/18 20:52 Dose: Not Given Lidocaine HCl (Xylocaine 1%) 50 ml INJECT ONETIME PRN PRN Reason: Laceration repair Last Admin: 08/20/18 16:36 Dose: 50 ml Methylergonovine Maleate (Methergine) 0.2 mg IM ASDIRECTED PRN PRN Reason: Post Hemorrhage Last Admin: 08/20/18 16:33 Dose: 0.2 mg Misoprostol (Cytotec) 200 mcg PO ONETIME PRN PRN Reason: Post Hemorrhage Nalbuphine HCl (Nubain) 10 mg IVPUSH Q1H PRN PRN Reason: Pain (severe 7-10) Sterile Water (Sterile Water For Irrigation) 1,000 ml IRR ASDIRECTED PRN PRN Reason: delivery Last Admin: 08/20/18 16:36 Dose: 1,000 ml Tranexamic Acid (Cyklokapron) Confirm Administered Dose 1,000 mg .ROUTE .STK- MED ONE Stop: 08/20/18 16:54 Last Admin: 08/20/18 16:59 Dose: 1,000 mg
--- NOTE | 2018-08-21 13:50 | OR ---
SURGEON: MAKSIM DIAZ DATE OF PROCEDURE:08/21/2018 PREOPERATIVE DIAGNOSIS: A 27-year-old, G1, P0, at 40 weeks and 5 days, admitted for induction of labor for post dates. POSTOPERATIVE DIAGNOSIS: A 27-year-old, G1, P0, at 40 weeks and 5 days, admitted for induction of labor for post dates.Retained Placenta. Hemorrhage PROCEDURE PERFORMED: Normal spontaneous vaginal delivery, Manual removal of placenta Second-degree laceration, which was repaired. ANESTHESIA: Epidural. ESTIMATED BLOOD LOSS: 1000 mL. FINDINGS: Live female delivered at 1640. score was 8 and 9. Weight is 3520g. Excessive amount of bleeding was noted. As a result, Methergine was given. Also, tranexamic acid was also given. BRIEF HISTORY: Patient is 27yo . She came in 40 weeks and 5 days for postdates induction. She started induction. She had Cytotec and Pitocin. Membranes were ruptured. She made change. She became fully dilated. She was encouraged to push. DESCRIPTION OF PROCEDURE: With good pushing effort, she delivered the head subsequently by the anterior and posterior shoulder. The body of the was delivered. was placed on maternal abdomen. Cord was clamped and cut. was handed over to the awaiting pediatric team. The placenta was then attempted to be delivered; however, there was difficulty separation of the placenta from the uterus. The manual removal of placenta was done without difficulty. Then, the perineum was inspected. A second-degree laceration was noted, which was repaired with 2-0 Monocryl. Hemostasis was noted. There was still some slight bleeding, so Methergine was given. Additional Pitocin was also given and also tranexamic acid 1 g was given after which hemostasis was controlled. The patient had some pain during the process and so, she received IV pain medication. All instrument and pad counts were correct x2. The patient left the Labor and Delivery room in stable condition. KYLIE NETTLES /[id number] MTDOrion
[2018-08-21] MEDS ORDERED: Measles, Mumps & Rubella Vaccine 0.5 ML SDV SUBCUT ONE (17:20)
== END 2018-08-21 20:52 | disposition home or self-care (01) | DRG 541 ==
LOC: MW.OBCHECK 00:28 → MW.OB 00:30 → MW.OBCHECK 00:31 → OBSVTOIN 19:08 → MW.OB 23:00
PROVIDERS: ADMIT Obstetrics & Gynecology; ATTEND Obstetrics & Gynecology
PROC: 3E0R3BZ Introduction of Anesthetic Agent into Spinal Canal, Percutaneous Approach (ICD-10-PCS; 2018-08-20)
PROC: 00HU33Z Insertion of Infusion Device into Spinal Canal, Percutaneous Approach (ICD-10-PCS; 2018-08-20)
PROC: 10907ZC Drainage of Amniotic Fluid, Therapeutic from Products of Conception, Via Natural or Artificial Opening (ICD-10-PCS; principal; 2018-08-21)
PROC: 3E033VJ Introduction of Other Hormone into Peripheral Vein, Percutaneous Approach (ICD-10-PCS; principal; 2018-08-21)
PROC: 10E0XZZ Delivery of Products of Conception, External Approach (ICD-10-PCS; principal; 2018-08-21)
PROC: 10D17Z9 Manual Extraction of Products of Conception, Retained, Via Natural or Artificial Opening (ICD-10-PCS; principal; 2018-08-21)
PROC: 0KQM0ZZ Repair Perineum Muscle, Open Approach (ICD-10-PCS; principal; 2018-08-21)
PROC: 3E0234Z Introduction of Serum, Toxoid and Vaccine into Muscle, Percutaneous Approach (ICD-10-PCS; 2018-08-21)
DX: O48.0 Post-term pregnancy (principal); Z3A.40 40 weeks gestation of pregnancy; O70.1 Second degree perineal laceration during delivery; Z37.0 Single live birth; O72.2 Delayed and secondary postpartum hemorrhage; Z23 Encounter for immunization
CPT/HCPCS: 36415; 59025; 59409; 82803; 85014; 85018; 85027; 86850; 86900; 86901; 90707; A9270-GY; J0295; J0595; J2001; J2210; J2590; J3010; J3490; J7030; J7120

== ENCOUNTER 2020-03-12 14:07 | Inpatient (IN) | payer BC ==
[2020-03-12] MEDS ORDERED: hydrOXYzine HCl 25 MG Tab PO PRN (14:56)
[2020-03-12] MEDS ORDERED: Water For Irrigation,Sterile 1,000 ML Container IRR PRN (14:56)
[2020-03-12] MEDS ORDERED: Sodium Chloride 0.9% 10 ML SDV IV PRN (14:56)
[2020-03-12] MEDS ORDERED: Nalbuphine 10 MG/1 ML Vial IVPUSH PRN (14:56)
[2020-03-12] MEDS ORDERED: Carboprost Tromethamine 250 MCG/1 ML Amp IM PRN (14:56)
[2020-03-12] MEDS ORDERED: Methylergonovine 0.2 MG/1 ML Amp IM PRN (14:56)
[2020-03-12] MEDS ORDERED: Lidocaine 1% 50 ML MDV INJECT PRN (14:56)
[2020-03-12] MEDS ORDERED: Sodium Chloride 0.9% 2.5 ML Syringe FLUSH PRN (14:56)
[2020-03-12] MEDS ORDERED: Terbutaline 1 MG/ML SDV SUBCUT PRN (14:56)
[2020-03-12] MEDS ORDERED: Sodium Chloride 0.9% 10 ML Syringe FLUSH PRN (14:56)
[2020-03-12] MEDS ORDERED: Misoprostol 25 MCG (1/4 of 100 MCG) Tab VAG PRN ×2 (14:56)
[2020-03-12] MEDS ORDERED: Tranexamic Acid 1,000 MG in Sodium Chloride 0.9% 100 ML IV PRN (14:56)
[2020-03-12] MEDS ORDERED: Butorphanol 1 MG/ML SDV IVPUSH PRN (14:56)
[2020-03-12] MEDS ORDERED: Misoprostol 200 MCG Tab PO PRN (14:56)
[2020-03-12] MEDS ORDERED: Ondansetron 4 MG/2 ML SDV IVPUSH PRN (14:56)
[2020-03-12] MEDS ORDERED: Oxytocin/0.9 % Sodium Chloride 30 UNIT/500 ML BAG IV SCH ×2 (15:00)
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
[2020-03-12] MEDS ORDERED: Misoprostol 25 MCG (1/4 of 100 MCG) Tab PO ONE (15:41)
[2020-03-12] MEDS: Lactated Ringers 1,000 ML IV SCH (23:05)
[2020-03-13] MEDS ORDERED: Ropivacaine HCl/PF 100 ML ONE (00:05)
[2020-03-13] MEDS ORDERED: fentaNYL 100 MCG/2 ML SDV ONE (00:05)
--- NOTE | 2020-03-13 00:30 | PCM.PREANE ---
Preanesthetic Assessment - Anesthesia/Transfusion/Family Hx Anesthesia History: Prior Anesthesia Without Reaction Family History of Anesthesia Reaction: No Transfusion History: No Prior Transfusion(s) - Physical Assessment NPO Status Date: 03/12/20 NPO Status Time: 21:30 Height: 1.7 m Weight: 102.058 kg ASA Class: 2 - Lab Values: Laboratory Last Values WBC 14.54 K/uL (4.0-11.0) H 03/12/20 15:20 RBC 4.34 M/uL (4.30-5.90) 03/12/20 15:20 Hgb 12.1 g/dL (12.0-16.0) 03/12/20 15:20 Hct 37.1 % (36.0-46.0) 03/12/20 15:20 MCV 85.5 fL (80.0-98.0) 03/12/20 15:20 MCH 27.9 pg (27.0-32.0) 03/12/20 15:20 MCHC 32.6 g/dL (31.0-37.0) 03/12/20 15:20 RDW Std Deviation 41.8 fl (28.0-62.0) 03/12/20 15:20 RDW Coeff of Gigi 14 % (11.0-15.0) 03/12/20 15:20 Plt Count 294 K/uL (150-400) 03/12/20 15:20 MPV 9.70 fL (7.40-12.00) 03/12/20 15:20 Nucleated RBC % 0.0 /100WBC 03/12/20 15:20 Nucleated RBCs # 0 K/uL 03/12/20 15:20 SARS-CoV-2 RNA (MILENA) NEGATIVE (NEGATIVE) 03/12/20 14:55 Blood Type O POSITIVE 03/12/20 15:25 Antibody Screen NEGATIVE 03/12/20 15:25 - Allergies Allergies/Adverse Reactions: Allergies Allergy/AdvReac Type Severity Reaction Status Date / Time No Known Allergies Allergy Verified 08/20/18 01:31 - Acknowledgements Anesthesia Type Planned: Epidural Pt an Appropriate Candidate for the Planned Anesthesia: Yes Alternatives and Risks of Anesthesia Discussed w Pt/Guardian: Yes Pt/Guardian Understands and Agrees with Anesthesia Plan: Yes PreAnesthesia Questionnaire HEENT History: Reports: Impaired Vision Cardiovascular History: Reports: None Respiratory History: Reports: None Gastrointestinal History: Reports: None Genitourinary History: Reports: None 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: Musculoskeletal History: Reports: Fracture Neurological History: Reports: None Psychiatric History: Reports: Anxiety, PTSD Endocrine/Metabolic History: Reports: None Hematologic History: Reports: None Immunologic History: Reports: None Oncologic (Cancer) History: Reports: None Dermatologic History: Reports: None - Infectious Disease History Infectious Disease History: Reports: Chicken Pox - Past Surgical History HEENT Surgical History: Reports: Oral Surgery, Other (See Below) Other HEENT Surgeries/Procedures: cyst removed from head Female Surgical History: Reports: None - SUBSTANCE USE Tobacco Use Status *Q: Never Tobacco User Second Hand Smoke Exposure: No Recreational Drug Use History: No - HOME MEDS Home Medications: Home Meds Pnv No.95/Ferrous Fum/Folic AC [ Tablet] 1 tab PO DAILY 08/20/18 [Hist ory] - CURRENT (IN HOUSE) MEDS Current Meds: Current Medications Butorphanol Tartrate (Stadol) 1 mg IVPUSH Q1H PRN PRN Reason: Pain Carboprost Tromethamine (Hemabate Ds) 250 mcg IM ASDIRECTED PRN PRN Reason: Post Hemorrhage Hydroxyzine HCl (Atarax) 50 mg PO Q6H PRN PRN Reason: Anxiety Lactated Ringer's (Ringers, Lactated) 1,000 mls @ 150 mls/hr IV ASDIRECTED [facility] Last Admin: 03/12/20 23:05 Dose: 999 mls/hr Documented by: Oxytocin/Sodium Chloride (Oxytocin 30 Unit/500 Ml-Ns) 30 unit in 500 mls @ 500 mls/hr IV TITRATE [facility] Tranexamic Acid 1,000 mg/ (Sodium Chloride) 110 mls @ 660 mls/hr IV ONETIME PRN PRN Reason: Bleeding Oxytocin/Sodium Chloride (Oxytocin 30 Unit/500 Ml-Ns) 30 unit in 500 mls @ 2 mls/hr IV TITRATE [facility]; Protocol Lidocaine HCl (Xylocaine 1%) 50 ml INJECT ONETIME PRN PRN Reason: Laceration repair Methylergonovine Maleate (Methergine) 0.2 mg IM ASDIRECTED PRN PRN Reason: Post Hemorrhage Misoprostol (Cytotec) 200 mcg PO ONETIME PRN PRN Reason: Post Hemorrhage Misoprostol (Cytotec) 25 mcg VAG ONETIME PRN PRN Reason: Cervical Ripening Last Admin: 03/12/20 15:57 Dose: 25 mcg Documented by: Misoprostol (Cytotec) 25 mcg VAG Q4H PRN PRN Reason: Cervical Ripening Nalbuphine HCl (Nubain) 10 mg IVPUSH Q1H PRN PRN Reason: Pain (severe 7-10) Ondansetron HCl (Zofran) 4 mg IVPUSH Q6H PRN PRN Reason: Nausea/Vomiting Sodium Chloride (Saline Flush) 10 ml FLUSH ASDIRECTED PRN PRN Reason: Keep Vein Open Sodium Chloride (Saline Flush) 2.5 ml FLUSH ASDIRECTED PRN PRN Reason: Keep Vein Open Sodium Chloride (Normal Saline) 10 ml IV ASDIRECTED PRN PRN Reason: IV Use Sterile Water (Sterile Water For Irrigation) 1,000 ml IRR ASDIRECTED PRN PRN Reason: delivery Terbutaline Sulfate (Brethine) 0.25 mg SUBCUT ASDIRECTED PRN PRN Reason: Tacysystole Discontinued Medications Fentanyl (Sublimaze) Confirm Administered Dose 100 mcg .ROUTE .STK-MED ONE Stop: 03/13/20 00:06 Ropivacaine (Naropin 0.2%) Confirm Administered Dose 100 mls @ as directed .ROUTE .STK-MED ONE Stop: 03/13/20 00:06 Misoprostol (Cytotec) 25 mcg PO ONETIME ONE Stop: 03/12/20 15:42 Last Admin: 03/12/20 15:50 Dose: 25 mcg Documented by:
[2020-03-13] MEDS: Lactated Ringers 1,000 ML IV SCH ×3 (00:32→04:26)
--- NOTE | 2020-03-13 00:33 | PCM.PRNOTE ---
- Free Text/Narrative Note: Anes Note Patient requests epidural for L&D. Sitting position. Level L3-L4 midline approach. Sterile technique, chloraprep scrub to lumbar area. Sterile fenestrated drape applied. Epidural space easily achieved single attempt with ease using EDY technique. EDY at 3 cm.Cath threaded 5 cm with ease. Cath secured at skin using sterile clear adhesive dressing. Test 0010 3 cc 1.5% lido with epi negative. 0014 LOad 10 cc 0.2% ropiviciane with 1 mcg cc fentanyl in slow divided doses. 0020 Pump started wtih 90 cc same solution. Rate is 8 cc hr with 6 cc q 20 min prn bolus. Adama well. Time with patient [id number] Nicolas Espino MEDICAL TRANSLATOR
[2020-03-13] MEDS ORDERED: Docusate Sodium 100 MG Cap PO PRN (08:02)
[2020-03-13] MEDS ORDERED: Witch Hazel Medicated Pads 40/Jar TOP PRN (08:02)
[2020-03-13] MEDS ORDERED: Bisacodyl 10 MG Supp RECTAL PRN (08:02)
[2020-03-13] MEDS ORDERED: Ibuprofen 400 MG Tab PO PRN (08:02)
[2020-03-13] MEDS ORDERED: oxyCODONE 5 MG Tab PO PRN (08:02)
[2020-03-13] MEDS ORDERED: Acetaminophen 500 MG Tab PO PRN (08:02)
[2020-03-13] MEDS ORDERED: Lanolin 100% Cream 7 GM Tube TOP PRN (08:02)
[2020-03-13] MEDS ORDERED: Benzocaine/Menthol 20%-0.5% Spray 78 GM Cannister TOP PRN (08:02)
[2020-03-13] MEDS: Acetaminophen 500 MG Tab PO PRN ×2 (08:24→18:00)
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
[2020-03-13] MEDS: Ibuprofen 800 MG Tab PO PRN ×2 (14:43→21:46)
--- NOTE | 2020-03-14 05:44 | PCM48HPAN ---
Post Anesthesia Note - EVALUATION WITHIN 48HRS OF ANESTHETIC Vital Signs in Normal Range: Yes Patient Participated in Evaluation: Yes Respiratory Function Stable: Yes Airway Patent: Yes Cardiovascular Function Stable: Yes Hydration Status Stable: Yes Pain Control Satisfactory: Yes Nausea and Vomiting Control Satisfactory: Yes Mental Status Recovered: Yes Vital Signs: Last Vital Signs Temp 36.4 C 03/13/20 21:10 Pulse 73 03/14/20 01:20 Resp 16 03/14/20 01:20 BP 112/75 03/14/20 01:20 Pulse Ox 96 03/14/20 01:20 - COMMENTS/OBSERVATIONS Free Text/Narrative:: The patient only complaint is back pain which is tolerable. She has no other complaints. There were no apparent anesthetic complications at this time. Discharge from anesthesia care.
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
== END 2020-03-14 16:07 | disposition home or self-care (01) | DRG 560 ==
LOC: MW.CHOBGYN 14:07 → MW.OB 14:10 → MW.CHOBGYN 14:57 → OBSVTOIN 03-13 07:41 → MW.OB 03-13 12:27
PROVIDERS: ADMIT Obstetrics & Gynecology; ATTEND Obstetrics & Gynecology
PROC: 10E0XZZ Delivery of Products of Conception, External Approach (ICD-10-PCS; principal; 2020-03-13)
PROC: 3E0P7VZ Introduction of Hormone into Female Reproductive, Via Natural or Artificial Opening (ICD-10-PCS; 2020-03-13)
PROC: 3E0R3BZ Introduction of Anesthetic Agent into Spinal Canal, Percutaneous Approach (ICD-10-PCS; 2020-03-13)
PROC: 00HU33Z Insertion of Infusion Device into Spinal Canal, Percutaneous Approach (ICD-10-PCS; 2020-03-13)
DX: O69.81X0 Labor and delivery complicated by cord around neck, without compression, not applicable or unspecified (principal); Z37.0 Single live birth; Z3A.39 39 weeks gestation of pregnancy; Z20.828 Contact with and (suspected) exposure to other viral communicable diseases
CPT/HCPCS: 01967; 36415; 51702; 59025; 59409; 85014; 85018; 85027; 86592; 86850; 86900; 86901; A9270-GY; J2590; J7120; U0002